=== PATIENT | female | born 1945 | race Caucasian/White ===

== ENCOUNTER 2024-05-24 12:37 | Outpatient (RCR) | payer OTHER, SELFPAY ==
[2024-05-24 13:19] VITALS: BP 120/50
[2024-05-24] MEDS: RECLAST 100 IV (13:32)
[2024-05-24 14:24] VITALS: BP 123/56
== END 2024-05-25 10:36 | disposition home or self-care (01) ==
LOC: OID 12:37
PROVIDERS: ATTENDING PHYSICIAN Internal Medicine
DX: M81.0 Age-related osteoporosis without current pathological fracture (principal); Z79.01 Long term (current) use of anticoagulants
CPT/HCPCS: 96365; J3489

== ENCOUNTER → 2024-06-12 12:05 | Outpatient (REF) | payer OTHER, SELFPAY | LOC: HWWDC 12:05 | PROVIDERS: ATTENDING PHYSICIAN Internal Medicine | DX: Z12.31 Encounter for screening mammogram for malignant neoplasm of breast (principal) | CPT/HCPCS: 77063; 77067 ==